=== PATIENT | female | born 1985 | race Caucasian/White ===

== ENCOUNTER 2020-06-01 13:34 | Emergency (ER) | payer MEDICAID ==
[~2020-06-01] VITALS: Ht 165.1 cm; Wt 127.0 kg
[~2020-06-01 13:34] MED LIST: FER300 PO; PROV10 PO; PROV5 PO
[2020-06-01 13:42] VITALS: Ht 165.1 cm; Wt 127.0 kg
[2020-06-01 14:16] LABS: BASOPHIL % 0.3 % (0-2); PLATELET COUNT 217 x10^3mcL (130-400)
[2020-06-01 14:35] LABS: CARBON DIOXIDE 24.7 mmol/L (21-32); CHLORIDE SERUM 102 mmol/L (98-107); GFR1 > 60 mL/min; GLUCOSE SERUM 131 mg/dL (74-106); POTASSIUM SERUM 4.2 mmol/L (3.5-5.1); SODIUM SERUM 136 mmol/L (136-145)
[2020-06-01 14:56] LABS: RED CELL DISTRIBUTION WIDTH 20.1 % (11.5-14.5)
[2020-06-01 15:34] VITALS: BP 129/75
[2020-06-01 15:54] LABS: rbc morphology (normal/abnorm) ABNORMAL (NORMAL)
[2020-06-01 15:55] LABS: tear drop cell (dacryocyte) 1+
== END 2020-06-01 15:34 | disposition home or self-care (01) ==
LOC: ED 13:34
PROVIDERS: Emergency Medicine
DX: R07.89 Other chest pain (principal); R06.02 Shortness of breath; I10 Essential (primary) hypertension; E11.9 Type 2 diabetes mellitus without complications
CPT/HCPCS: Q0092